=== PATIENT | female | born 1945 | race African-American/Black ===

== ENCOUNTER 2023-05-10 23:57 | Inpatient (IN) | payer MEDICARE, OTHER ==
[~2023-05-10] VITALS: Ht 167.6 cm; Wt 72.6 kg
[2023-05-11 01:03] LABS: BASOPHILS % (AUTO) 0.6 % (0.0-2.0); EOSINOPHILS % (AUTO) 1.4 % (0.0-6.0); HEMATOCRIT 42 % (33-45); HEMOGLOBIN 13.9 g/dL (11.5-14.8); LYMPHOCYTES % (AUTO) 23.4 % (20.0-44.0); MEAN CORPUSCULAR HEMOGLOBIN 30 PG (26.0-33.0); MEAN CORPUSCULAR HGB CONC 33 g/dl (31.0-36.0); MEAN CORPUSCULAR VOLUME 91 fL (82-100); MONOCYTES % (AUTO) 8.2 % (2.0-12.0); NEUTROPHILS % (AUTO) 66.4 % (43.0-81.0); PLATELET COUNT (AUTO) 204 K/uL (150-450); RED BLOOD CELL COUNT(AUTO) 4.65 MIL/uL (4.0-5.2); RED CELL DISTRIBUTION WIDTH 13.9 % (11.5-15.0); WHITE BLOOD COUNT (AUTO) 5.5 K/uL (4.3-11.0)
[2023-05-11 01:04] LABS: EOSINOPHILS # (AUTO) 0.1 K/uL (0.0-0.7); LYMPHOCYTES # (AUTO) 1.3 K/uL (0.8-4.8); MONOCYTES # (AUTO) 0.5 K/uL (0.1-1.30); NEUTROPHILS # (AUTO) 3.7 K/uL (1.8-8.9)
[2023-05-11 01:08] LABS: CALCIUM, SERUM 9.4 mg/dL (8.5-10.1); CARBON DIOXIDE 26 mmol/L (21-32); CHLORIDE 105 mmol/L (98-107); CREATININE 1.5 mg/dL (0.6-1.3); GLUCOSE 118 mg/dL (74-106); POTASSIUM 3.8 mmol/L (3.5-5.1); SODIUM SERUM 141 mmol/L (136-145); UREA NITROGEN, BLOOD 26 mg/dL (7-18)
[2023-05-11 01:14] LABS: ALANINE AMINOTRANSFERASE 33 U/L (12-78); ALBUMIN 3.5 g/dL (3.4-5.0); ALCOHOL, BLOOD < 3 mg/dL (0-10); ALKALINE PHOSPHATASE 104 U/L (46-116); ASPARTATE AMINOTRANSFERASE 17 U/L (15-37); BILIRUBIN,DIRECT 0.1 mg/dL (0.0-0.2); BILIRUBIN,TOTAL 0.4 mg/dL (0.2-1.0); TOTAL PROTEIN, SERUM 7.1 g/dL (6.4-8.2)
[2023-05-11 01:27] LABS: ACETAMINOPHEN <10 ug/ml (10-30); SALICYLATE 1.1 mg/dL (2.8-20.0)
[2023-05-11 03:00] VITALS: BP 124/76; TEMP 98.1; O2SAT 97
[2023-05-11] MEDS ORDERED: ASCO500C18 PO (03:10)
[2023-05-11] MEDS ORDERED: FERR325T23 PO (03:11)
[2023-05-11] MEDS ORDERED: MIRT-90 PO (03:12)
[2023-05-11] MEDS ORDERED: OLAN5TAB3 PO (03:13)
[2023-05-11] MEDS ORDERED: MAGNESIUM HYDROXIDE 30 ML UDC PO PRN (03:30)
[2023-05-11] MEDS ORDERED: LORAZEPAM 0.5 MG TABLET PO PRN (03:30)
[2023-05-11] MEDS ORDERED: ZOLPIDEM TARTRATE 5 MG TABLET PO PRN (03:30)
[2023-05-11] MEDS ORDERED: ACETAMINOPHEN 325 MG TABLET PO PRN (03:30)
[2023-05-11] MEDS ORDERED: MAG HYDROX/AL HYDROX/SIMETH 30 ML UDC PO PRN (03:30)
[2023-05-11] MEDS: BLOOD SUGAR DIAGNOSTIC 1 EACH STRIP IN ONE (03:36)
[2023-05-11] MEDS ORDERED: MAG30ORA PO (07:56)
[2023-05-11] MEDS ORDERED: MAGN400O6 PO (07:56)
[2023-05-11] MEDS ORDERED: ACET-868 PO (07:56)
[2023-05-11 08:00] VITALS: BP 114/60; TEMP 98.7; O2SAT 96
[2023-05-11 14:27] LABS: APPEARANCE,URINE CLEAR (CLEAR); BILIRUBIN,URINE NEGATIVE (NEGATIVE); BLOOD, URINE NEGATIVE Ery/uL (NEGATIVE); COLOR,URINE YELLOW (YELLOW); KETONES,URINE NEGATIVE (NEGATIVE); LEUKOCYTE ESTERASE ,URINE TRACE (NEGATIVE); NITRITE, URINE POSITIVE (NEGATIVE); PH,URINE 5.5 (5.0-8.0); PROTEIN,URINE NEGATIVE (NEGATIVE); UGLUCOSE NEGATIVE (NEGATIVE); UROBILINOGEN,URINE 0.2 EU/dL (0.2)
[2023-05-11 14:40] LABS: ADD URINE CULTURE YES; BACTERIA,URINE Many /HPF (None Seen); SQUAMOUS EPITHELIAL CELL,UR Few /HPF (None Seen)
[2023-05-11 15:24] LABS: AMPHETAMINE, URINE NEGATIVE (NEGATIVE); BARBITURATE, URINE NEGATIVE (NEGATIVE); BENZODIAZEPINE, URINE NEGATIVE (NEGATIVE); CANNABINOID, URINE NEGATIVE (NEGATIVE); COCCAINE, URINE NEGATIVE (NEGATIVE); OPIATE, URINE NEGATIVE (NEGATIVE); PHENCYCLIDINE SCREEN,URINE NEGATIVE (NEGATIVE)
[2023-05-11 16:00] VITALS: BP 127/70; TEMP 98.4; O2SAT 95
[2023-05-11] MEDS: FERROUS SULFATE (325 MG) 325 MG/TAB TABLET PO SCH (16:30)
[2023-05-11] MEDS: ASCORBIC ACID 500 MG TABLET PO SCH (16:30)
[2023-05-11 20:00] VITALS: BP 121/69; TEMP 98.4; O2SAT 98
[2023-05-11] MEDS: OLANZAPINE 5 MG TABLET PO SCH (21:45)
[2023-05-12 08:00] VITALS: BP 113/80; TEMP 98.1; O2SAT 95
[2023-05-12] MEDS: CEPHALEXIN MONOHYDRATE 250 MG/5 ML BOTTLE PO SCH (09:36)
[2023-05-12 11:58] LABS: BASOPHILS % (AUTO) 0.6 % (0.0-2.0); EOSINOPHILS # (AUTO) 0.1 K/uL (0.0-0.7); EOSINOPHILS % (AUTO) 1.4 % (0.0-6.0); HEMATOCRIT 39 % (33-45); HEMOGLOBIN 12.9 g/dL (11.5-14.8); MEAN CORPUSCULAR HEMOGLOBIN 30 PG (26.0-33.0); MEAN CORPUSCULAR HGB CONC 33 g/dl (31.0-36.0); MEAN CORPUSCULAR VOLUME 91 fL (82-100); MONOCYTES # (AUTO) 0.4 K/uL (0.1-1.30); MONOCYTES % (AUTO) 8.2 % (2.0-12.0); NEUTROPHILS # (AUTO) 3.6 K/uL (1.8-8.9); NEUTROPHILS % (AUTO) 69.8 % (43.0-81.0); PLATELET COUNT (AUTO) 183 K/uL (150-450); RED BLOOD CELL COUNT(AUTO) 4.31 MIL/uL (4.0-5.2); RED CELL DISTRIBUTION WIDTH 14.1 % (11.5-15.0); WHITE BLOOD COUNT (AUTO) 5.2 K/uL (4.3-11.0)
[2023-05-12 12:07] LABS: CALCIUM, SERUM 8.4 mg/dL (8.5-10.1); CREATININE 1.2 mg/dL (0.6-1.3); POTASSIUM 4.4 mmol/L (3.5-5.1)
[2023-05-12 16:00] VITALS: BP 124/78; TEMP 97.9; O2SAT 98
[2023-05-12 20:23] VITALS: BP 131/79; TEMP 98; O2SAT 100
[2023-05-13 08:00] VITALS: BP 108/77; TEMP 97.8; O2SAT 98
[2023-05-13 08:28] LABS: ALANINE AMINOTRANSFERASE 30 U/L (12-78); ALBUMIN 2.9 g/dL (3.4-5.0); ALKALINE PHOSPHATASE 88 U/L (46-116); ASPARTATE AMINOTRANSFERASE 15 U/L (15-37); BILIRUBIN,TOTAL 0.4 mg/dL (0.2-1.0); CALCIUM, SERUM 9.2 mg/dL (8.5-10.1); CARBON DIOXIDE 28 mmol/L (21-32); CHLORIDE 107 mmol/L (98-107); CREATININE 1.2 mg/dL (0.6-1.3); GLUCOSE 97 mg/dL (74-106); POTASSIUM 4.2 mmol/L (3.5-5.1); SODIUM SERUM 141 mmol/L (136-145); TOTAL PROTEIN, SERUM 6.1 g/dL (6.4-8.2); UREA NITROGEN, BLOOD 26 mg/dL (7-18)
[2023-05-13] MEDS: CEPHALEXIN MONOHYDRATE 500 MG CAPSULE PO SCH (09:00)
[2023-05-13] MEDS: OLANZAPINE 5 MG TABLET PO ONE (09:07)
[2023-05-13 16:00] VITALS: BP 146/84; TEMP 98.6; O2SAT 98
[2023-05-13] MEDS: OLANZAPINE ZYDIS 5 MG TAB.RAPDIS PO SCH (17:00)
[2023-05-13 20:35] VITALS: BP 135/87; TEMP 98; O2SAT 96
[2023-05-14 08:00] VITALS: BP 120/83; TEMP 97.9; O2SAT 98
[2023-05-14 09:41] LABS: ALANINE AMINOTRANSFERASE 34 U/L (12-78); ALKALINE PHOSPHATASE 88 U/L (46-116); ASPARTATE AMINOTRANSFERASE 19 U/L (15-37); BILIRUBIN,TOTAL 0.4 mg/dL (0.2-1.0); CALCIUM, SERUM 9.1 mg/dL (8.5-10.1); CARBON DIOXIDE 25 mmol/L (21-32); CHLORIDE 107 mmol/L (98-107); CREATININE 1.2 mg/dL (0.6-1.3); GLUCOSE 94 mg/dL (74-106); SODIUM SERUM 141 mmol/L (136-145); TOTAL PROTEIN, SERUM 6.3 g/dL (6.4-8.2); UREA NITROGEN, BLOOD 27 mg/dL (7-18)
[2023-05-14 16:00] VITALS: BP_SYST 132; BP_SYST 79; BP_DIAS 79; TEMP 97.9; O2SAT 97
[2023-05-15 08:00] VITALS: BP 110/64; TEMP 98.6; O2SAT 99
[2023-05-15 16:00] VITALS: BP 144/70; TEMP 98.1; O2SAT 97
[2023-05-15 20:00] VITALS: BP 142/87; TEMP 98.2; O2SAT 95
[2023-05-16 08:00] VITALS: BP 110/72; TEMP 97.8; O2SAT 96
[2023-05-16 16:00] VITALS: BP 137/70; TEMP 97.9; O2SAT 95
[2023-05-16 20:00] VITALS: BP 126/67; TEMP 97.9; O2SAT 98
[2023-05-17 08:00] VITALS: BP 106/63; TEMP 97.9; O2SAT 96
[2023-05-17 16:00] VITALS: BP 119/79; TEMP 98; O2SAT 98
[2023-05-17] MEDS: OLANZAPINE 10 MG VIAL IM PRN (17:57)
[2023-05-17 20:00] VITALS: BP 107/58; TEMP 97.8; O2SAT 96
[2023-05-18 08:00] VITALS: BP 101/63; TEMP 97.8; O2SAT 95
[2023-05-18 16:00] VITALS: BP 117/74; TEMP 98; O2SAT 95
[2023-05-18 20:28] VITALS: BP 127/75; TEMP 98.2; O2SAT 98
[2023-05-19 08:00] VITALS: BP 120/83; TEMP 98.1; O2SAT 99
[2023-05-19] MEDS: OLANZAPINE ZYDIS 5 MG TAB.RAPDIS PO SCH (13:00)
[2023-05-19] MEDS: OLANZAPINE 10 MG VIAL IM PRN (15:11)
[2023-05-19 16:00] VITALS: BP 143/84; TEMP 97.7; O2SAT 98
[2023-05-19 20:46] VITALS: BP 130/96; TEMP 97.9; O2SAT 98
[2023-05-20 08:00] VITALS: BP 135/70; TEMP 97.3; O2SAT 98
[2023-05-20 16:00] VITALS: BP 138/78; TEMP 98.1; O2SAT 95
[2023-05-20 20:55] VITALS: BP 110/75; TEMP 98; O2SAT 97
[2023-05-21 08:00] VITALS: BP 112/85; TEMP 97.9; O2SAT 96
[2023-05-21] MEDS: HALOPERIDOL 5 MG TABLET PO SCH (09:30)
[2023-05-21] MEDS: BENZTROPINE MESYLATE (1 MG) 1 MG TABLET PO SCH (09:30)
[2023-05-21] MEDS: HALOPERIDOL LACTATE INJ 5 MG/ML VIAL IM PRN (09:52)
[2023-05-21] MEDS: BENZTROPINE MESYLATE (2MG/2ML) 2 MG/2 ML AMPUL IM PRN (09:52)
[2023-05-21 16:00] VITALS: BP 134/73; TEMP 97.9; O2SAT 98
[2023-05-21 21:14] VITALS: BP 148/85; TEMP 98.6; O2SAT 94
[2023-05-22 08:00] VITALS: BP 130/74; TEMP 97.9; O2SAT 99
[2023-05-22 16:00] VITALS: BP 127/74; TEMP 97.9; O2SAT 97
[2023-05-22 21:18] VITALS: BP 128/72; TEMP 98.4; O2SAT 96
[2023-05-23 08:00] VITALS: BP 116/83; TEMP 97.6; O2SAT 97
[2023-05-23] MEDS: HALOPERIDOL DECANOATE IM 100 MG/ML AMPUL IM SCH (13:14)
[2023-05-23 16:00] VITALS: BP 121/81; TEMP 97.6; O2SAT 98
[2023-05-23 20:00] VITALS: BP 112/64; TEMP 98; O2SAT 95
[2023-05-24 08:00] VITALS: BP 107/63; TEMP 97.5; O2SAT 97
[2023-05-24 16:00] VITALS: BP 127/68; TEMP 97.6; O2SAT 96
[2023-05-24 20:00] VITALS: BP 107/61; TEMP 98.1; O2SAT 98
[2023-05-25 08:00] VITALS: BP 114/72; TEMP 98; O2SAT 94
[2023-05-25 16:00] VITALS: BP 123/69; TEMP 97.6; O2SAT 98
[2023-05-25 20:00] VITALS: BP 118/75; TEMP 98; O2SAT 96
[2023-05-26 08:00] VITALS: BP 102/53; TEMP 98.2; O2SAT 95
[2023-05-26 16:00] VITALS: BP 119/70; TEMP 98.4; O2SAT 97
[2023-05-26 20:22] VITALS: BP 150/86; TEMP 98.4; O2SAT 97
[2023-05-27 08:00] VITALS: BP 122/70; TEMP 98.6; O2SAT 97
== END 2023-05-27 14:00 | DRG 885 ==
LOC: ER 05-11 00:10 → GPS 05-11 02:20
PROVIDERS: ADMIT Psychiatry & Neurology Psychiatry; ATTEND Internal Medicine
DX: F29 Unspecified psychosis not due to a substance or known physiological condition (principal); N17.9 Acute kidney failure, unspecified; N39.0 Urinary tract infection, site not specified; F03.911 Unspecified dementia, unspecified severity, with agitation; F25.0 Schizoaffective disorder, bipolar type; E61.1 Iron deficiency
CPT/HCPCS: 36415; 80048-TC; 80053-TC; 80061-TC; 80076-TC; 81001; 82962-TC; 85025-TC; 87081-TC; 87086-TC; 97116-TC; 97530-TC; G0480; J0515; J1630; J1631; J3490

== ENCOUNTER 2025-02-06 01:07 | Inpatient (IN) | payer MEDICARE, OTHER ==
[~2025-02-06] VITALS: Ht 172.7 cm; Wt 81.6 kg
[~2025-02-06 01:07] MED LIST: ACET-868 PO; ASCO500C18 PO; FERR325T23 PO; HALO50VI4 IM; MAG30ORA PO; MAGN400O6 PO; MIRT-90 PO; OLAN5TAB3 PO
[2025-02-06 02:21] LABS: PLATELET COUNT (AUTO) 205 K/uL (150-450); RED BLOOD CELL COUNT(AUTO) 4.06 MIL/uL (4.0-5.2); RED CELL DISTRIBUTION WIDTH 14.9 % (11.5-15.0); WHITE BLOOD COUNT (AUTO) 6.3 K/uL (4.3-11.0)
[2025-02-06 02:29] LABS: CALCIUM, SERUM 8.3 mg/dL (8.5-10.1); CREATININE 1.5 mg/dL (0.6-1.3); SODIUM SERUM 145 mmol/L (136-145); UREA NITROGEN, BLOOD 27 mg/dL (7-18)
[2025-02-06 02:34] LABS: ALCOHOL, BLOOD < 3 mg/dL (0-10); ASPARTATE AMINOTRANSFERASE 27 U/L (15-37); TOTAL PROTEIN, SERUM 6.9 g/dL (6.4-8.2)
[2025-02-06 05:06] LABS: APPEARANCE,URINE SLIGHTLY CLOUDY (CLEAR); BLOOD, URINE NEGATIVE Ery/uL (NEGATIVE); LEUKOCYTE ESTERASE ,URINE 1+ (NEGATIVE); NITRITE, URINE POSITIVE (NEGATIVE); UGLUCOSE NEGATIVE (NEGATIVE)
[2025-02-06 05:23] LABS: AMPHETAMINE, URINE NEGATIVE (NEGATIVE); BARBITURATE, URINE NEGATIVE (NEGATIVE); BENZODIAZEPINE, URINE NEGATIVE (NEGATIVE); CANNABINOID, URINE NEGATIVE (NEGATIVE); COCCAINE, URINE NEGATIVE (NEGATIVE); OPIATE, URINE NEGATIVE (NEGATIVE)
[2025-02-06 05:25] LABS: ADD URINE CULTURE YES; SQUAMOUS EPITHELIAL CELL,UR 0-2 /HPF (None Seen)
[2025-02-06] MEDS ORDERED: ACET325T53 PO (08:03)
[2025-02-06] MEDS ORDERED: MAG HYDROX/AL HYDROX/SIMETH 30 ML UDC PO PRN (09:00)
[2025-02-06] MEDS: ASCORBIC ACID 500 MG TABLET PO SCH (09:00)
[2025-02-06] MEDS ORDERED: MAGNESIUM HYDROXIDE 30 ML UDC PO PRN (09:00)
[2025-02-06] MEDS: FERROUS SULFATE (325 MG) 325 MG/TAB TABLET PO SCH (09:00)
[2025-02-06] MEDS: BLOOD SUGAR DIAGNOSTIC 1 EACH STRIP IN ONE (09:00)
[2025-02-06] MEDS ORDERED: ACETAMINOPHEN 325 MG TABLET PO PRN (09:00)
[2025-02-06] MEDS ORDERED: TEMAZEPAM 7.5 MG CAPSULE PO PRN (09:00)
[2025-02-06] MEDS ORDERED: LORAZEPAM 0.5 MG TABLET PO PRN (09:00)
[2025-02-06] MEDS ORDERED: CEFTRIAXONE 1 G VIAL ONE (10:06)
[2025-02-06] MEDS ORDERED: LIDOCAINE /MPF 1% VIAL 5 ML VIAL ONE (10:06)
[2025-02-06] MEDS: CEFTRIAXONE 1GM BAG (ER ONLY) 1 GM/50 ML PIGGYBACK IV ONE (10:16)
[2025-02-06] MEDS: CEPHALEXIN MONOHYDRATE 500 MG CAPSULE PO SCH (15:09)
[2025-02-06 16:00] VITALS: BP 122/87; TEMP 98.7; O2SAT 96
[2025-02-06 20:27] VITALS: BP 127/92; TEMP 98.6; O2SAT 97
[2025-02-07] MEDS: HALOPERIDOL 1 MG TABLET PO SCH (09:00)
[2025-02-07 16:00] VITALS: BP 100/63; TEMP 97.7; O2SAT 97
[2025-02-07 20:30] VITALS: BP 124/69; TEMP 98.6; O2SAT 98
[2025-02-08 08:00] VITALS: BP 140/74; TEMP 97.8; O2SAT 96
[2025-02-08] MEDS ORDERED: ZOLPIDEM TARTRATE 5 MG TABLET PO PRN (10:30)
[2025-02-08 15:39] VITALS: BP 142/80; TEMP 97.9; O2SAT 97
[2025-02-08] MEDS: HALOPERIDOL 5 MG TABLET PO SCH (16:21)
[2025-02-08 20:00] VITALS: BP 101/64; TEMP 97.9; O2SAT 96
[2025-02-09 08:00] VITALS: BP 132/80; TEMP 98.1; O2SAT 98
[2025-02-09 16:00] VITALS: BP 132/79; TEMP 98.7; O2SAT 96
[2025-02-09 20:31] VITALS: BP 121/51; TEMP 97.9; O2SAT 97
[2025-02-10 08:27] VITALS: BP 114/72; TEMP 98; O2SAT 98
[2025-02-10 09:27] VITALS: BP 114/72; TEMP 98; O2SAT 98
[2025-02-10] MEDS: HALOPERIDOL 5 MG TABLET PO SCH (09:59)
[2025-02-10] MEDS ORDERED: BENZTROPINE MESYLATE (1 MG) 1 MG TABLET PO PRN (10:00)
[2025-02-10] MEDS ORDERED: HALOPERIDOL LACTATE INJ 5 MG/ML VIAL IM PRN (10:00)
[2025-02-10 15:51] VITALS: BP 129/64; TEMP 98.7; O2SAT 97
[2025-02-10 20:00] VITALS: BP 114/70; TEMP 98.1; O2SAT 97
[2025-02-11 08:00] VITALS: BP 112/68; TEMP 98.1; O2SAT 97
[2025-02-11 16:00] VITALS: BP 126/66; TEMP 98.2; O2SAT 97
[2025-02-11 20:27] VITALS: BP 118/75; TEMP 98; O2SAT 98
[2025-02-12 08:00] VITALS: BP 128/75; TEMP 98.2; O2SAT 95
[2025-02-12] MEDS: HALOPERIDOL DECANOATE IM 100 MG/ML AMPUL IM SCH (11:01)
[2025-02-12 16:19] VITALS: BP 124/62; TEMP 98.1; O2SAT 94
[2025-02-12 21:27] VITALS: BP 111/72; TEMP 98; O2SAT 96
[2025-02-13 08:00] VITALS: BP 121/62; TEMP 97.7; O2SAT 98
[2025-02-13 16:00] VITALS: BP 102/74; TEMP 97.7; O2SAT 98
[2025-02-13 20:54] VITALS: BP 131/83; TEMP 97.9; O2SAT 97
[2025-02-14 08:00] VITALS: BP 118/66; TEMP 98.1; O2SAT 95
[2025-02-14 16:00] VITALS: BP 109/71; TEMP 97.6; O2SAT 97
[2025-02-14 20:03] VITALS: BP 111/51; TEMP 97.7; O2SAT 97
[2025-02-15 08:00] VITALS: BP 109/64; TEMP 98.6; O2SAT 99
[2025-02-15] MEDS ORDERED: HALOPERIDOL LACTATE INJ 5 MG/ML VIAL IM PRN (10:00)
[2025-02-15] MEDS: HALOPERIDOL 5 MG TABLET PO SCH (12:26)
[2025-02-15 16:00] VITALS: BP 114/66; TEMP 98.4; O2SAT 94
[2025-02-15 20:37] VITALS: BP 114/86; TEMP 97.5; O2SAT 96
[2025-02-16 08:07] LABS: PLATELET COUNT (AUTO) 226 K/uL (150-450); RED BLOOD CELL COUNT(AUTO) 4.11 MIL/uL (4.0-5.2); RED CELL DISTRIBUTION WIDTH 14.4 % (11.5-15.0); WHITE BLOOD COUNT (AUTO) 5.7 K/uL (4.3-11.0)
[2025-02-16 08:38] VITALS: BP 112/66; TEMP 98.2; O2SAT 96
[2025-02-16 08:52] LABS: ASPARTATE AMINOTRANSFERASE 22.0 U/L (15-37); CALCIUM, SERUM 9.0 mg/dL (8.5-10.1); CREATININE 1.3 mg/dL (0.6-1.3); PHOSPHORUS 3.5 mg/dL (2.5-4.9); SODIUM SERUM 141.0 mmol/L (136-145); TOTAL PROTEIN, SERUM 7.0 g/dL (6.4-8.2); UREA NITROGEN, BLOOD 27.0 mg/dL (7-18)
[2025-02-16] MEDS: HALOPERIDOL 5 MG TABLET PO SCH (12:12)
[2025-02-16 20:04] VITALS: BP 115/67; TEMP 98.2; O2SAT 96
[2025-02-17 08:00] VITALS: BP 96/69; TEMP 98.6; O2SAT 98
[2025-02-17 09:04] VITALS: BP 103/61
[2025-02-17 12:22] VITALS: BP 102/60
[2025-02-17 16:00] VITALS: BP 109/60; TEMP 98.6; O2SAT 98
[2025-02-17 20:26] VITALS: BP 128/51; TEMP 98.7; O2SAT 96
[2025-02-18 08:00] VITALS: BP 126/69; TEMP 97.8; O2SAT 99
[2025-02-18 16:00] VITALS: BP 115/58; TEMP 97.8; O2SAT 95
[2025-02-18 21:18] VITALS: BP 117/72; TEMP 98.1; O2SAT 96
[2025-02-19 08:00] VITALS: BP 123/72; TEMP 98.2; O2SAT 98
== END 2025-02-19 15:20 | DRG 885 ==
LOC: ER 01:10 → GPS 08:23
PROVIDERS: ADMIT Psychiatry & Neurology Psychiatry
DX: F25.9 Schizoaffective disorder, unspecified (principal); N17.9 Acute kidney failure, unspecified; E44.1 Mild protein-calorie malnutrition; E88.09 Other disorders of plasma-protein metabolism, not elsewhere classified; N39.0 Urinary tract infection, site not specified; B96.20 Unspecified Escherichia coli [E. coli] as the cause of diseases classified elsewhere; I51.7 Cardiomegaly; R73.03 Prediabetes; Z53.29 Procedure and treatment not carried out because of patient's decision for other reasons; Z68.27 Body mass index [BMI] 27.0-27.9, adult; Z11.52 Encounter for screening for COVID-19
CPT/HCPCS: 36415; 70450-TC; 80048-TC; 80053-TC; 80076-TC; 81001; 83735-TC; 84100-TC; 85025-TC; 87086-TC; 87186-TC; G0480; J0696; J1631; J3490